=== PATIENT | male | born 1960 | race Caucasian/White ===

== ENCOUNTER → 2024-02-27 | Outpatient (CLI) | payer MEDICARE ==
[2024-02-27] MEDS: REGADENOSON 0.4 MG/5 ML PF SYG IVP ONE (15:09)
--- NOTE | 2024-02-28 08:16 | HMCSR ---
APPROVED REPORT Height: 5 ft 9in Weight: 204 lbs TEST INDICATIONS CAD The imaging protocol used to acquire images was Rest Tc-99m/stress Tc-99m 1 day Consent: The procedure was explained and understood by the patient. Informerd consent was witnessed Inessa Ryder RN First, low dose rest was performed then high dose stress. RESTING DATA: The resting ekg shows: NSR, RBBB Rest SPECT myocardial perfusion imaging was performed in supine position 88 minutes following the int ravenous injection of 10.7 mCi of Tc-99 Sestamibi. Time of rest injection: 09:14: Date: 02/27/2024 Time of rest imagin:43: Date: 02/27/2024 PHARMACOLOGIC STRESS: Pharmacologic stress test was performed by injecting regadenoson 0.4 mg IV push followed by the intra venous injection of 31.3 mCi of Tc-99 Sestamibi. Time of stress injection: 11:05: Date: 02/27/2024 Time of stress imagin:44: Date: 02/27/2024 Heart Rate at time of stress injection: 57 bpm. Gated Stress SPECT was performed 99 minutes after stress injection. The images were gated to evaluate regional wall motion and calculate left ventricular ejection fracti on. STRESS DETAILS Reason for Termination: Infusion complete Stress Symptoms: Dyspnea;Headache Max HR Achieved: 86 bpm % of APMHR Achieved: 56 Max Blood Pressure: 163/79 mmHg Stress ECG: NSR, RBBB Conclusion No ischemia No infarct Breast shadow attenuation artifact LV ejection fraction of 67% Normal LV wall motion Normal LV size at rest and stress No evidence of increased lung uptake
== END | disposition home or self-care (01) ==
LOC: SHCH 08:48
PROVIDERS: ATTEND Internal Medicine Cardiovascular Disease
DX: I45.10 Unspecified right bundle-branch block (principal); R06.09 Other forms of dyspnea; R51.9 Headache, unspecified; I25.10 Atherosclerotic heart disease of native coronary artery without angina pectoris
CPT/HCPCS: 78452; 93017; J2785; A9500 ×2